=== PATIENT | female | born 1975 | race Caucasian/White ===

== ENCOUNTER → 2016-09-12 | Outpatient (REF) ==
--- NOTE | 2016-09-12 16:58 | REP ---
Right knee series: Five views: History: Right knee pain. Findings: Five views of the right knee demonstrate normal bones, joints, and soft tissues. No evidence of arthropathy or erosive change. Impression: Negative right knee series. Signed by John Marquez MD 09/13/2016 09:23 A
--- NOTE | 2016-09-12 17:18 | REP ---
Lumbar spine radiographs: Four views. History: Degenerative disc disease. Back pain. Findings: Lumbar vertebral body heights are preserved. Alignment is normal. Disc spaces are maintained. Pedicles and posterior elements are intact. There is no evidence of spondylolysis or spondylolisthesis. There appear to be surgical sutures in the pelvis soft tissues bilaterally. Psoas margins are symmetric. Sacrum and SI joints are intact. Impression: Negative lumbar spine radiographs. Signed by John Marquez MD 09/13/2016 09:23 A
== END ==
LOC: M SMT 14:34
PROVIDERS: ATTEND Internal Medicine
DX: M54.5 Low back pain (principal)